=== PATIENT | male | born 1975 | race Caucasian/White ===

== ENCOUNTER 2017-07-18 11:52 | Emergency (ER) | payer OTHER ==
[2017-07-18 12:00] VITALS: RESP 18
--- NOTE | 2017-07-18 12:15 | ED ---
General Adult HPI - General Chief complaint: Extremity Problem,Nontraumatic Stated complaint: High platelet count Time Seen by Provider: 07/18/17 12:01 Source: patient, RN notes reviewed Mode of arrival: ambulatory Limitations: no limitations - Related Data Home Medications Medication Instructions Recorded Confirmed Aspirin [Adult Low Dose Aspirin EC] 1 tab PO HS 07/18/17 07/18/17 buPROPion HCL [Wellbutrin SR] 150 mg PO BID 07/18/17 07/18/17 Allergies Allergy/AdvReac Type Severity Reaction Status Date / Time No Known Allergies Allergy Verified 07/18/17 12:23 Review of Systems ROS Statement: Those systems with pertinent positive or pertinent negative responses have been documented in the HPI. review of systems. Patient denies any headache no visual acuity changes no chest pain shortness of breath. No nausea no vomiting no change in appetite. The patient reports a several days developing discomfort and swelling to the medial aspect of his left calf. He presents now a positive Homans sign. All systems are reviewed., Past medical problems significant for essential thrombocytosis. Chronically elevated platelets in the 650 700,000 range. Patient's denies any other medical problems does take 81 mg of aspirin per day. The patient's surgeries include dissection and removal of a necrotic right anterior cervical lymph node. Family history no cancers. Patient denies ALLERGIES, denies smoking, denies drinking. 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 ROS Other: All systems not noted in ROS Statement are negative. Past Medical History Past Medical History: CVA/TIA Additional Past Medical History / Comment(s): elevated platelets History of Any Multi-Drug Resistant Organisms: None Reported Additional Past Surgical History / Comment(s): carotid lymph node removed Past Psychological History: No Psychological Hx Reported Smoking Status: Never smoker Past Alcohol Use History: Rare Past Drug Use History: None Reported General Exam - General Exam Comments Initial Comments: General: The patient is awake and alert, here because of a chief complaint of tender swollen left leg, here rule out DVT left leg. Vital signs temperature 98.2 pulse 74 respiratory rate 18 pulse ox 90% room air blood pressure 146/92 Eye: Pupils are equal, round and reactive to light, extra-ocular movements are intact ; there is normal conjunctiva bilaterally. No signs of icterus. Ears, nose, mouth and throat: There are moist mucous membranes and no oral lesions. Neck: The neck is supple, there is no tenderness , no anterior cervical lymphadenopathy, thyroid not enlarged. Cardiovascular: There is a regular rate and rhythm. No murmur, rub or gallop is appreciated. Respiratory: Lungs are clear to auscultation, respirations are non-labored, breath sounds are equal. No wheezes, stridor, rales, or rhonchi. Gastrointestinal: abdomen nontender. No nausea no vomiting no diarrhea. Back: back normal, no evidence of pain or discomfort. Musculoskeletal: upper and lower extremities normal except for his left calf, Homans sign positive. Neurovascular status of the foot intact. No bruising noted. Mildly swollen left calf as compared to the right. Neurological: no complaints of any evidence of any focal or lateralizing signs findings. Skin: Skin is warm and dry and no rashes or lesions are noted. Psychiatric: Cooperative, appropriate mood & affect, normal judgment. Limitations: no limitations Course Vital Signs 07/18/17 07/18/17 11:56 14:14 Temperature 98.2 F Pulse Rate 74 69 Respiratory 18 18 Rate Blood Pressure 146/92 130/62 O2 Sat by Pulse 98 97 Oximetry Medical Decision Making - Medical Decision Making medical decision making; the patient's here because of a tender Zara swollen left calf. Labs show white count of 8.6 hemoglobin 16.9 hematocrit of 41. INR 1.0. Potassium mildly elevated at 5.5. Platelets 528. BUN 14 creatinine 1.0 GFR greater than 60. Glucose 105. Ultrasound of the left lower extremity was done to rule out DVT. The radiologist reviewed the ultrasound. His reports includes; vessels imaged; external iliac vein, common femoral vein, deep femoral vein, greater saphenous vein, femoral vein, popliteal vein, small saphenous vein, ,proximal calf veins. Left leg; appears negative for DVT. Impression ; no diagnostic evidence of DVT. As read by Dr. Gordon Plan ; patient continue with his aspirin and ibuprofen daily. Warm compress keep his leg elevated wiggling his toes move his ankle back fourth and follow- up with his family physician. There is no evidence of bruising or superficial blood clots. no evidence of Pitt's cyst. - Lab Data Result diagrams: 07/18/17 12:07/18/17 12: Lab Results 07/18/17 07/18/17 07/18/17 Range/Units 12:27 12:27 12:27 WBC 8.6 (3.8-10.6) k/uL RBC 5.55 (4.30-5.90) m/uL Hgb 16.9 (13.0-17.5) gm/dL Hct 51.1 (39.0-53.0) % MCV 92.2 (80.0-100.0) fL MCH 30.5 (25.0-35.0) pg MCHC 33.1 (31.0-37.0) g/dL RDW 13.2 (11.5-15.5) % Plt Count 528 H (150-450) k/uL Neutrophils % 65 % Lymphocytes % 24 % Monocytes % 6 % Eosinophils % 2 % Basophils % 1 % Neutrophils # 5.5 (1.3-7.7) k/uL Lymphocytes # 2.0 (1.0-4.8) k/uL Monocytes # 0.5 (0-1.0) k/uL Eosinophils # 0.2 (0-0.7) k/uL Basophils # 0.1 (0-0.2) k/uL PT 10.1 (9.0-12.0) sec INR 1.0 (<1.2) Sodium 142 (137-145) mmol/L Potassium 5.5 H (3.5-5.1) mmol/L Chloride 104 (98-107) mmol/L Carbon Dioxide 31 H (22-30) mmol/L Anion Gap 7 mmol/L BUN 14 (9-20) mg/dL Creatinine 1.02 (0.66-1.25) mg/dL Est GFR (MDRD) Af Amer >60 (>60 ml/min/1.73 sqM) Est GFR (MDRD) Non-Af >60 (>60 ml/min/1.73 sqM) Glucose 105 H (74-99) mg/dL Calcium 10.2 (8.4-10.2) mg/dL Total Bilirubin 1.0 (0.2-1.3) mg/dL AST 30 (17-59) U/L ALT 52 (21-72) U/L Alkaline Phosphatase 71 (38-126) U/L Total Protein 7.2 (6.3-8.2) g/dL Albumin 4.3 (3.5-5.0) g/dL Disposition Clinical Impression: Muscle strain of left lower extremity Disposition: HOME SELF-CARE Condition: Fair Instructions: Muscle Strain (ED) Additional Instructions: Keep leg elevated wiggling toes move the ankle. Use warm compresses as needed. Hepatic profile and. Follow-up with family physician. Return emergency room as needed Referrals: None,Stated [Primary Care Provider] - 1-2 days Time of Disposition: 14:35
[2017-07-18 13:00] LABS: ALT 52 U/L (21-72); AST 30 U/L (17-59); Alkaline Phosphatase 71 U/L (38-126); Anion Gap 7 mmol/L; Blood Urea Nitrogen 14 mg/dL (9-20); Calcium 10.2 mg/dL (8.4-10.2); Carbon Dioxide 31 mmol/L (22-30); Chloride 104 mmol/L (98-107); Glucose 105 mg/dL (74-99); Non-African American GFR(MDRD) >60 (>60 ml/min/1.73 sqM); Potassium 5.5 mmol/L (3.5-5.1); Sodium 142 mmol/L (137-145); Total Protein 7.2 g/dL (6.3-8.2)
[2017-07-18 13:20] LABS: Basophils # (A) 0.1 k/uL (0-0.2); Basophils % (A) 1 %; CH 32.3; CHCM 35.3; Eosinophils # (A) 0.2 k/uL (0-0.7); Eosinophils % (A) 2 %; HCT 51.1 % (39.0-53.0); HDW 2.75; HGB 16.9 gm/dL (13.0-17.5); Luc # (Auto) 0.18; Luc % (Auto) 2; Lymphocytes % (A) 24 %; MCH 30.5 pg (25.0-35.0); MCHC 33.1 g/dL (31.0-37.0); MCV 92.2 fL (80.0-100.0); Mean Platelet Volume 7.1; Monocytes # (A) 0.5 k/uL (0-1.0); Monocytes % (A) 6 %; Neutrophils # (A) 5.5 k/uL (1.3-7.7); Neutrophils % (A) 65 %; RBC 5.55 m/uL (4.30-5.90); RDW 13.2 % (11.5-15.5); WBC 8.6 k/uL (3.8-10.6); WBC (Perox) 8.71
[2017-07-18 13:32] LABS: Prothrombin Time 10.1 sec (9.0-12.0)
--- NOTE | 2017-07-18 13:58 | US ---
EXAMINATION TYPE: US venous doppler duplex LE LT DATE OF EXAM: 07/18/2017 12:11 PM COMPARISON: NONE CLINICAL HISTORY: + Homans, hx essential thrombocytosis. Left calf pain x 2 days SIDE PERFORMED: Left TECHNIQUE: The lower extremity deep venous system is examined utilizing real time linear array sonog jennifer with graded compression, doppler sonography and color-flow sonography. VESSELS IMAGED: External Iliac Vein (EIV) Common Femoral Vein Deep Femoral Vein Greater Saphenous Vein * Femoral Vein Popliteal Vein Small Saphenous Vein * Proximal Calf Veins (* superficial vessels) Left Leg: Appears negative for DVT IMPRESSION: 1. No diagnostic evidence of DVT.
[2017-07-18 14:42] VITALS: BP 141/80; PULSE 64; TEMP 98.6
== END 2017-07-18 14:42 | disposition home or self-care (01) ==
LOC: EC 11:52
DX: S86.912A Strain of unspecified muscle(s) and tendon(s) at lower leg level, left leg, initial encounter (principal); E87.5 Hyperkalemia; Z79.82 Long term (current) use of aspirin; Z79.899 Other long term (current) drug therapy; X58.XXXA Exposure to other specified factors, initial encounter
CPT/HCPCS: 36415; 80053; 85025; 85610; 99284